=== PATIENT | male | born 1930 | race African-American/Black ===

== ENCOUNTER 2017-09-30 18:38 | Emergency (ER) | payer MEDICARE, OTHER ==
[~2017-09-30] VITALS: Ht 172.7 cm; Wt 73.6 kg
[2017-09-30] MEDS ORDERED: XALA2.5OS OU (18:51)
[2017-09-30] MEDS ORDERED: AMLO-512 PO (18:51)
[2017-09-30] MEDS ORDERED: ATEN50TA PO (18:51)
[2017-09-30] MEDS ORDERED: BRINOS OU (18:51)
[2017-09-30] MEDS ORDERED: BRIM5DRO10 OU (18:51)
[2017-09-30] MEDS ORDERED: TELM40 PO (18:51)
[2017-09-30 19:07] LABS: GLUCOSE,POINT OF CARE 171 MG/DL (70-110)
[2017-09-30 20:41] LABS: BASOPHILS % (AUTO) 0.1 % (0.0-2.0); HEMATOCRIT 43.7 % (41-53); HEMOGLOBIN 14.3 g/dL (13.5-17.5); LYMPHOCYTES # (AUTO) 0.9 K/uL (1.0-4.8); LYMPHOCYTES % (AUTO) 15.7 % (22.0-44.0); MEAN CORPUSCULAR HGB CONC 32.8 G/dL (31.0-37.0); MEAN CORPUSCULAR VOLUME 79 fL (80-100); MONOCYTES # (AUTO) 0.6 K/uL (0.1-1.0); MONOCYTES % (AUTO) 9.4 % (2.0-9.0); NEUTROPHILS # (AUTO) 4.3 K/uL (1.8-7.7); NEUTROPHILS % (AUTO) 72.8 % (40.0-70.0); PLATELET COUNT (AUTO) 158 K/uL (150-450); RED CELL DISTRIBUTION WIDTH 14.3 % (11.5-14.5)
[2017-09-30 21:23] LABS: CALCIUM, TOTAL 8.7 mg/dL (8.8-10.5); CREATININE 1.62 mg/dL (0.60-1.30); POTASSIUM 4.1 mmol/L (3.5-5.1)
[2017-09-30 21:33] LABS: AMMONIA 34 umol/L (11-32)
[2017-09-30 21:38] LABS: ALBUMIN 3.5 g/dL (3.4-5.0); BILIRUBIN,TOTAL 0.4 mg/dL (0.1-1.0); TOTAL PROTEIN, SERUM 7.1 g/dL (6.4-8.2); TROPONIN I < 0.02 ng/mL (0.00-0.05)
[2017-09-30 22:28] LABS: APPEARANCE,URINE CLEAR (CLEAR); GLUCOSE, URINE (UA) 100 mg/dL (NEGATIVE); KETONES,URINE NEGATIVE (NEGATIVE); LEUKOCYTE ESTERASE ,URINE NEGATIVE (NEGATIVE); OCCULT BLOOD,URINE NEGATIVE (NEGATIVE); PROTEIN,URINE SEE CONFIRM (NEGATIVE)
[2017-09-30 22:29] LABS: ADD UA MICROSCOPIC YES
[2017-09-30 22:38] LABS: RBC,URINE 0-2 /HPF (0-2); SULFOSALICYLIC ACID,URINE 1+ (Negative); WBC,URINE None Seen /HPF (0-5)
[2017-09-30 23:00] VITALS: BP 139/76
== END 2017-09-30 23:04 | disposition home or self-care (01) ==
LOC: EMS 18:43
DX: F68.8 Other specified disorders of adult personality and behavior (principal); N28.9 Disorder of kidney and ureter, unspecified; E11.9 Type 2 diabetes mellitus without complications; I10 Essential (primary) hypertension
CPT/HCPCS: 70450; 82962; 93005; 99285